=== PATIENT | male | born 1985 | race Caucasian/White ===

== ENCOUNTER 2022-05-06 09:05 | Observation (INO) | payer OTHER ==
[~2022-05-06] VITALS: Ht 177.8 cm; Wt 124.7 kg
[2022-05-06 09:17] VITALS: BP 133/83
[2022-05-06 09:51] LABS: BASO % 0.6 % (0.0-1.0); EOS % 0.8 % (1.0-4.0); HEMATOCRIT 44.2 % (42.0-52.0); LYMPH # 1.3 10*3/uL (1.3-4.4); LYMPH % 25.6 % (27.0-41.0); MEAN CELL VOLUME 82.8 fl (80.0-94.0); MEAN CORPUSCULAR HGB 27.5 pg (27.0-31.0); MEAN CORPUSCULAR HGB CONC 33.3 g/dl (33.0-37.0); MONO # 0.4 10*3/uL (0.1-1.0); MONO % 7.7 % (3.0-9.0); NEUT # 3.4 10*3/uL (2.3-7.9); NEUT % 65.1 % (47.0-73.0); PLATELET COUNT AUTOMATED 247 10*3/uL (130-400); RED BLOOD COUNT 5.34 10*6/uL (4.50-5.90); RED CELL DISTRI WIDTH 15.9 % (0-14.5); WHITE BLOOD COUNT 5.2 10*3/uL (4.8-10.8)
[2022-05-06 09:52] LABS: BILIRUBIN Negative (Negative); BLOOD Negative (Negative); CLARITY Clear (Clear); COLOR Yellow (Yellow); GLUCOSE Negative (Negative); KETONE 1+ (Negative); LEUKO ESTERASE Negative (Negative); NITRITE Negative (Negative); PH 5.5 (4.5-8.0); UROBILINOGEN 0.2 E.U./dl (0.0-1.0)
[2022-05-06 10:07] LABS: ALKALINE PHOSPHATASE 79 U/L (45-117); BUN 12 mg/dl (7-24); CHLORIDE 104 mmol/L (98-107); LIPASE 74 U/L (73-393); POTASSIUM 3.4 mmol/L (3.5-5.1); SGOT/AST 27 IU/L (3-35); SGPT/ALT 31 U/L (12-78); SODIUM 138 mmol/L (136-145); TOTAL PROTEIN 6.9 gm/dL (6.4-8.2)
[2022-05-06 10:09] LABS: RBC 0-2 rbc/hpf (0-2); WBC 0-2 wbc/hpf (0-5)
[2022-05-06 11:31] VITALS: BP 124/78
[2022-05-06 11:50] VITALS: BP 129/71; BP 133/83
[2022-05-06 14:00] VITALS: BP 128/70
[2022-05-06 16:00] VITALS: BP 130/72
[2022-05-06 20:00] VITALS: BP 126/83
[2022-05-07] VITALS (7 sets, daily range): BP systolic 100–131; BP diastolic 45–82
[2022-05-07 05:13] LABS: BUN 11 mg/dl (7-24); CHLORIDE 103 mmol/L (98-107); CREATININE 0.87 mg/dL (0.70-1.30); POTASSIUM 3.7 mmol/L (3.5-5.1); SODIUM 137 mmol/L (136-145)
[2022-05-07 05:15] LABS: CHOLESTEROL 116 mg/dL (<200); TRIGLYCERIDES 248 mg/dl (<150)
[2022-05-07 05:24] LABS: FREE T4 1.07 ng/dl (0.76-1.46); LDL CHOLESTEROL 27 mg/dL (9-159)
[2022-05-07 06:04] LABS: BASO % 0.6 % (0.0-1.0); EOS # 0.1 10*3/uL (0.0-0.4); EOS % 1.3 % (1.0-4.0); HEMATOCRIT 41.6 % (42.0-52.0); LYMPH # 2.7 10*3/uL (1.3-4.4); LYMPH % 39.1 % (27.0-41.0); MEAN CELL VOLUME 83.2 fl (80.0-94.0); MEAN CORPUSCULAR HGB 27.8 pg (27.0-31.0); MEAN CORPUSCULAR HGB CONC 33.4 g/dl (33.0-37.0); MEAN PLATELET VOLUME 9.7 fl (9.6-12.3); MONO # 0.6 10*3/uL (0.1-1.0); NEUT # 3.5 10*3/uL (2.3-7.9); NEUT % 50.9 % (47.0-73.0); PLATELET COUNT AUTOMATED 273 10*3/uL (130-400); RED CELL DISTRI WIDTH 15.9 % (0-14.5)
[2022-05-07] MEDS ORDERED: Carafate1 GM PO (12:50)
[2022-05-07] MEDS ORDERED: OMEPRAZOLE40 MG PO (12:50)
== END 2022-05-07 14:50 | disposition home or self-care (01) ==
LOC: ED 09:05 → 4E 10:45 → EDHOLD 10:45 → 4E 11:01
PROVIDERS: Emergency Medicine; Student in an Organized Health Care Education/Training Program; ADMIT Family Medicine; ATTEND Family Medicine
DX: K29.70 Gastritis, unspecified, without bleeding (principal); K20.90 Esophagitis, unspecified without bleeding; R42 Dizziness and giddiness; K92.1 Melena; E87.6 Hypokalemia; R73.9 Hyperglycemia, unspecified; R82.4 Acetonuria; E66.9 Obesity, unspecified; R00.0 Tachycardia, unspecified; F17.210 Nicotine dependence, cigarettes, uncomplicated; Z79.899 Other long term (current) drug therapy

== ENCOUNTER 2022-05-23 06:52 | Emergency (ER) | payer OTHER ==
[~2022-05-23] VITALS: Ht 177.8 cm; Wt 120.2 kg
[~2022-05-23 06:52] MED LIST: Carafate1 GM PO; OMEPRAZOLE40 MG PO
[2022-05-23] MEDS ORDERED: PERCOCET 5-3251 EACH PO (14:49)
== END 2022-05-23 14:55 | disposition home or self-care (01) ==
LOC: ED 06:52
DX: S92.211A Displaced fracture of cuboid bone of right foot, initial encounter for closed fracture (principal); S92.321A Displaced fracture of second metatarsal bone, right foot, initial encounter for closed fracture; S92.331A Displaced fracture of third metatarsal bone, right foot, initial encounter for closed fracture; S92.341A Displaced fracture of fourth metatarsal bone, right foot, initial encounter for closed fracture; S92.351A Displaced fracture of fifth metatarsal bone, right foot, initial encounter for closed fracture; S40.012A Contusion of left shoulder, initial encounter; M25.521 Pain in right elbow; F17.210 Nicotine dependence, cigarettes, uncomplicated; Z79.899 Other long term (current) drug therapy; V28.0XXA Motorcycle driver injured in noncollision transport accident in nontraffic accident, initial encounter; Y93.I9 Activity, other involving external motion; Y92.488 Other paved roadways as the place of occurrence of the external cause; Y99.8 Other external cause status

== ENCOUNTER 2024-09-07 08:01 | Emergency (ER) | payer BC ==
[~2024-09-07] VITALS: Ht 177.8 cm; Wt 113.4 kg
[~2024-09-07 08:01] MED LIST changes: +PERCOCET 5-3251 EACH PO
[2024-09-07] MEDS ORDERED: Ketorolac Tromethamine 60 MG/2 ML VIAL IM ONE (08:25)
[2024-09-07] MEDS ORDERED: MELOXICAM15 MG PO (09:25)
== END 2024-09-07 09:45 | disposition home or self-care (01) ==
LOC: ED 08:01
DX: S40.012A Contusion of left shoulder, initial encounter (principal); F17.210 Nicotine dependence, cigarettes, uncomplicated; Z79.899 Other long term (current) drug therapy; V86.55XA Driver of 3- or 4- wheeled all-terrain vehicle (ATV) injured in nontraffic accident, initial encounter; Y93.I9 Activity, other involving external motion; Y92.488 Other paved roadways as the place of occurrence of the external cause; Y99.8 Other external cause status

== ENCOUNTER 2024-09-24 12:00 | Emergency (ER) | payer BC ==
[~2024-09-24] VITALS: Ht 177.8 cm; Wt 113.4 kg
[~2024-09-24 12:00] MED LIST changes: +MELOXICAM15 MG PO
[2024-09-24] MEDS ORDERED: Acetaminophen/Oxycodone 5 MG/325 MG TABLET PO ONE (14:25)
[2024-09-24] MEDS ORDERED: PERCOCET 5-3251 EACH PO (14:37)
== END 2024-09-24 14:55 | disposition home or self-care (01) ==
LOC: ED 12:00
DX: S22.41XA Multiple fractures of ribs, right side, initial encounter for closed fracture (principal); M25.512 Pain in left shoulder; F41.9 Anxiety disorder, unspecified; F32.A Depression, unspecified; F17.210 Nicotine dependence, cigarettes, uncomplicated; F12.90 Cannabis use, unspecified, uncomplicated; Z98.890 Other specified postprocedural states; V86.59XA Driver of other special all-terrain or other off-road motor vehicle injured in nontraffic accident, initial encounter; Y93.89 Activity, other specified; Y92.89 Other specified places as the place of occurrence of the external cause; Y99.8 Other external cause status